=== PATIENT | female | born 1990 | race Caucasian/White ===

== ENCOUNTER 2018-11-11 16:45 | Emergency (ER) | payer BC ==
--- NOTE | 2018-11-11 18:15 | EDM.PDOC ---
ED HPI GENERAL MEDICAL PROBLEM - General Source of Information: Reports: Patient, RN Notes Reviewed History Limitations: Reports: No Limitations <Soni Pope - Last Filed: 11/11/18 18:22> <Torrie Bearden - Last Filed: 11/13/18 10:41> - General Chief Complaint: BANKRUPTCY PARALEGAL Problem Stated Complaint: MISCARRIAGE Time Seen by Provider: 11/11/18 17:55 - History of Present Illness INITIAL COMMENTS - FREE TEXT/NARRATIVE: Bianka is a 27 year old female, 001, who had some vaginal bleeding starting on . She was seen by her OB Dr. Rosen's BECKY Nix at [facility] in [place]. She was told she was having a miscarriage, and debris was seen on US. Patient reports that her HCG was 8,000 at that time. The plan was for her to have serial quant HCG lab draws at the [facility] until her levels reached zero. The patient states that she had some light bleeding on Monday, with gushes of blood on and off. Monday, she had painful cramping in her suprapubic area and bleeding, estimating she soaked through 4-7 pads, noticing some dime sized clots. Today, the patient continues to have karyna and dime sized clots with bleeding. She states that about noon today she was sitting at her parents house and suddenly became flushed and lightheaded. She then ate a bowl of vegetables and felt better. She laid down to take a nap and her sister in law checked her blood sugar, which she states was normal. She had some dash jaskaran and cookies. Her family then convinced her to come in and be evaluated. Patient states that she is feeling much better and that she attributes this episode to not eating. Patient denies any fever, chills, weakness, SOB. She did have some loose stools yesterday. She has some URI symptoms that are almost resolved. She has been treating her symptoms with tylenol, warm baths, and a heating pad. (Soni Pope) I have seen the patient and agree with the HPI as documented by SAMMY Finn Patient is unsure of her blood type. Does not believe she has had rhogram. ( Roemmich,Torrie F) - Related Data Allergies Allergy/AdvReac Type Severity Reaction Status Date / Time No Known Allergies Allergy Verified 11/11/18 17:02 Home Meds: Home Meds Pnv No.95/Ferrous Fum/Folic AC [ Caplet] 1 each PO DAILY 11/11/18 [ History] Past Medical History - Past Health History Medical/Surgical History: Denies Medical/Surgical History - Past Surgical History Female Surgical History: Reports: Section <Soni Pope - Last Filed: 11/11/18 18:22> Social & Family History - Family History Family Medical History: Noncontributory - Tobacco Use Smoking Status *Q: Current Every Day Smoker Years of Tobacco use: 10 Packs/Tins Daily: 0.2 - Caffeine Use Caffeine Use: Reports: None - Recreational Drug Use Recreational Drug Use: No <Soni Pope - Last Filed: 11/11/18 18:22> ED ROS GENERAL - Review of Systems Review Of Systems: ROS reveals no pertinent complaints other than HPI. <Soni Pope - Last Filed: 11/11/18 18:22> - Review of Systems Review Of Systems: See Below Constitutional: Denies: Fever, Chills Cardiovascular: Reports: Lightheadedness. Denies: Syncope GI/Abdominal: Denies: Abdominal Pain, Nausea, Vomiting : Reports: Other (vaginal bleeding ) Musculoskeletal: Denies: Back Pain Neurological: Denies: Dizziness, Syncope <Torrie Bearden - Last Filed: 11/13/18 10:41> ED EXAM - Physical Exam Exam: See Below Exam Limited By: No Limitations General Appearance: Alert, WD/WN, No Apparent Distress Eye Exam: Bilateral Eye: Normal Inspection Throat/Mouth: Normal Inspection, Normal Oropharynx Head: Atraumatic, Normocephalic Respiratory/Chest: No Respiratory Distress, Lungs Clear, Normal Breath Sounds Cardiovascular: Normal Peripheral Pulses, Regular Rate, Rhythm GI/Abdominal Exam: Normal Bowel Sounds, Soft, Non-Tender Neurological: Alert, Oriented, CN II-XII Intact Skin Exam: Warm, Dry, Intact <Soni Pope - Last Filed: 11/11/18 18:22> - Physical Exam Exam: See Below Exam Limited By: No Limitations General Appearance: Alert, WD/WN, No Apparent Distress <Torrie Bearden F - Last Filed: 11/13/18 10:41> Course <Soni Pope - Last Filed: 11/11/18 18:22> <Torrie Bearden F - Last Filed: 11/13/18 10:41> - Vital Signs Last Recorded V/S: Last Vital Signs Temp 99 F 11/11/18 16:58 Pulse 100 11/11/18 16:58 Resp 18 11/11/18 16:58 BP 141/78 H 11/11/18 16:58 Pulse Ox 97 11/11/18 16:58 Orthostatic Blood Pressure [ 149/91 Standing] Orthostatic Blood Pressure [ 136/83 Sitting] Orthostatic Blood Pressure [ 154/93 Supine] - Orders/Labs/Meds Labs: Laboratory Tests 11/11/18 11/11/18 11/11/18 Range/Units 18:45 18:45 18:48 WBC 8.17 (3.98-10.04) K/mm3 RBC 4.49 (3.98-5.22) M/mm3 Hgb 13.8 (11.2-15.7) gm/L Hct 40.5 (34.1-44.9) % MCV 90.2 (79.4-94.8) fl MCH 30.7 (25.6-32.2) pg MCHC 34.1 (32.2-35.5) g/dl RDW Std Deviation 39.8 (36.4-46.3) fL Plt Count 197 (182-369) K/mm3 MPV 9.8 (9.4-12.3) fl Neut % (Auto) 52.9 (34.0-71.1) % Lymph % (Auto) 37.6 (19.3-51.7) % [place] % (Auto) 7.6 (4.7-12.5) % Eos % (Auto) 1.2 (0.7-5.8) Baso % (Auto) 0.5 (0.1-1.2) % Neut # (Auto) 4.32 (1.56-6.13) K/mm3 Lymph # (Auto) 3.07 (1.18-3.74) K/mm3 [place] # (Auto) 0.62 H (0.24-0.36) K/mm3 Eos # (Auto) 0.10 (0.04-0.36) K/mm3 Baso # (Auto) 0.04 (0.01-0.08) K/mm3 HCG, Qual Positive H (NEGATIVE) Blood Type A POSITIVE - Re-Assessments/Exams Free Text/Narrative Re-Assessment/Exam: 11/11/18 18:50 I have seen the patient and agree with the HPI, ROS and PE as documented by SAMMY Finn. Patient is primarily here at the urging of her family. Reports her cramping and pain is significantly improved. Continues to have bleeding but is lessened. Discussed with the patient her options. Sounds as if she has miscarried. She has been seeing ob and at this point they are allowing nature to run its course and she declined a D&C and medications prior. I offered labs, a pelvic exam and possibly an ultrasound to further evaluate her and see if she would be a candidate for medications or a D&C. She would like her hgb checked. Will also check her blood type. She is not orthostatic and does not want to wait for the lab results. I will call her if anything concerning comes up. She does not know her HCG quant from yesterday, will check tonight. Likely still elevated. Will discharge home with instructions to return if symptoms change or labs are concerning. She agrees. Discharge instructions as documented. 11/11/18 22:30 Blood type is A+. quant analyzer is down in lab, unable to obtain. Hgb is WNL. (Torrie Bearden) Departure <Soni Pope - Last Filed: 11/11/18 18:22> - Departure Time of Disposition: 18:53 Condition: Fair - Discharge Information *PRESCRIPTION DRUG MONITORING PROGRAM REVIEWED*: No *COPY OF PRESCRIPTION DRUG MONITORING REPORT IN PATIENT BRITTANY: No <Torrie Bearden - Last Filed: 11/13/18 10:41> - Departure Disposition: Home, Self-Care 01 Clinical Impression: Miscarriage - Discharge Information Instructions: Miscarriage, [id number] Referrals: Kinsey Rosen MD [Primary Care Provider] - Forms: ED Department Discharge Additional Instructions: Continue with your current plan of care. Drink plenty of fluids. Follow-up with your Ob as planned. We will call you with your lab results if there is anything concerning. Please return to the ER should your symptoms change or worsen.
== END 2018-11-11 19:05 | disposition home or self-care (01) ==
LOC: JD.ED 16:45
DX: O03.9 Complete or unspecified spontaneous abortion without complication (principal); F17.210 Nicotine dependence, cigarettes, uncomplicated; Z79.899 Other long term (current) drug therapy
CPT/HCPCS: 36415; 84703; 85025; 86900; 86901; 99282; 99284